=== PATIENT | male | born 1950 | race Caucasian/White ===

== ENCOUNTER 2016-05-14 17:46 | Emergency (ER) | payer OTHER, MEDICAID ==
[~2016-05-14] VITALS: Ht 172.7 cm; Wt 80.0 kg
[2016-05-14 17:52] VITALS: BP 107/60; PULSE 86; RESP 18; TEMP 97; O2SAT 95
[2016-05-15 02:35] VITALS: BP 121/75; PULSE 71; RESP 16; O2SAT 98
[2016-05-15] MEDS ORDERED: ONDANSETRON HCL 4 MG/2 ML VIAL IVP ONE (02:45)
[2016-05-15] MEDS ORDERED: SODIUM CHLOR 0.9% 1000 ML INJ 1,000 ML IV ONE (02:45)
[2016-05-15] MEDS ORDERED: SODIUM CHLORIDE 0.9% FLUSH 5 ML FLUSH IVF PRN (02:45)
--- NOTE | 2016-05-15 02:58 | RADRPT ---
EXAM DATE/TIME: 05/15/2016 02:51 [place] COMPARISON: CT BRAIN W/O CONTRAST, January 10, 2016, 18:50. INDICATIONS : Cephalgia and dizziness. RADIATION DOSE: 41.96 CTDIvol (mGy) MEDICAL HISTORY : None SURGICAL HISTORY : None. ENCOUNTER: Initial ACUITY: 1 day PAIN SCALE: 5/10 LOCATION: cranial TECHNIQUE: Multiple contiguous axial images were obtained of the head. Using automated exposure control and adj ustment of the mA and/or kV according to patient size, radiation dose was kept as low as reasonably a chievable to obtain optimal diagnostic quality images. FINDINGS: CEREBRUM: The ventricles are normal for age. No evidence of midline shift, mass lesion, hemorrhage or acute in farction. No extra-axial fluid collections are seen. POSTERIOR FOSSA: The cerebellum and brainstem are intact. The 4th ventricle is midline. The cerebellopontine angle i s unremarkable. EXTRACRANIAL: The visualized portion of the orbits is intact. SKULL: The calvaria is intact. No evidence of skull fracture. CONCLUSION: Negative noncontrast CT brain. Kris Olivares MD on May 15, 2016 at 2:56 Board Certified Radiologist. This report was verified electronically.
[2016-05-15 03:38] VITALS: BP 194/123; PULSE 92; RESP 18; O2SAT 96
[2016-05-15 03:39] VITALS: PULSE 58
[2016-05-15 03:44] LABS: AUTOMATED NEUTROPHIL # 2.3 TH/MM3 (1.8-7.7); BASOPHIL % 0.4 % (0.0-2.0); EOSINOPHIL # 0.1 TH/MM3 (0-0.4); EOSINOPHIL % 1.2 % (0.0-4.0); HEMATOCRIT 43.2 % (39.0-51.0); HEMO FLAGS DIFF FINAL; LYMPH % 38.1 % (9.0-44.0); LYMPHOCYTE # 1.7 TH/MM3 (1.0-4.8); MEAN CELL VOLUME 93.4 FL (80.0-100.0); MEAN CORPUSCULAR HEMOGLOBIN 31.7 PG (27.0-34.0); MEAN CORPUSCULAR HGB CONC 33.9 % (32.0-36.0); MONO % 9.5 % (0.0-8.0); NEUT % 50.8 % (16.0-70.0); PLATELET COUNT 182 TH/MM3 (150-450); RED BLOOD COUNT 4.62 MIL/MM3 (4.50-5.90); RED CELL DISTRIBUTION WIDTH 13.9 % (11.6-17.2); WHITE BLOOD COUNT 4.5 TH/MM3 (4.0-11.0)
[2016-05-15 04:01] LABS: ALT (GPT) 30 U/L (12-78); ANION GAP 7 MEQ/L (5-15); AST (GOT) 16 U/L (15-37); BICARBONATE 26.6 MEQ/L (21.0-32.0); BLOOD UREA NITROGEN 13 MG/DL (7-18); CHLORIDE 103 MEQ/L (98-107); GLOMERULAR FILTRATION RATE 84 ML/MIN (>89); POTASSIUM 3.9 MEQ/L (3.5-5.1); SODIUM (NA) 137 MEQ/L (136-145)
[2016-05-15 04:02] LABS: APTT (PATIENT) 24.7 SEC (24.3-30.1); PROTHROMBIN TIME - PATIENT 10.9 SEC (9.8-11.6)
[2016-05-15 04:03] LABS: ALKALINE PHOSPHATASE 84 U/L (45-117); TOTAL BILIRUBIN ADULT 0.6 MG/DL (0.2-1.0)
[2016-05-15 04:15] LABS: AMPHETAMINE, URINE NEG (NEG); BARBITURATES, URINE NEG (NEG); COCAINE, URINE NEG (NEG)
[2016-05-15 04:16] LABS: BLOOD, URINE NEG (NEG); COMMENT (UR) CULT NOT INDICATED; GLUCOSE,URINE NEG (NEG); HYALINE CAST, URINE 2 /lpf (RARE); KETONE, URINE NEG (NEG); MUCUS URINE MOD /lpf (OCC); NITRITE,URINE NEG (NEG); PH, URINE 5.5 (5.0-8.5); SQUAMOUS EPITHELIAL CELL URINE <1 /hpf (0-5); URINE COLOR YELLOW (YELLW/STRAW)
--- NOTE | 2016-05-15 04:59 | PD ---
HPI Chief Complaint: Eye Problems/Injury Time Seen by Provider: 02:33 Travel History International Travel<30 days: No Contact w/Intl Traveler<30days: No Traveled to known affect area: No History of Present Illness HPI Patient is a 65-year-old male who presents to emergency room with complaints of dizziness. Patient reports that his customer solutions specialist told him that he had cataracts which need to be surgically removed, patient reports that he is here to have his cataracts removed. Patient reports that because of his cataracts, he feels dizzy. Patient reports that he felt dizzy around 5pm on 05/14/16 - reports that he was standing and nearly fainted. Reports that he felt faint and his friend was able to help him down to the ground. Denies syncopal episode. Denies LOC. Denies chest pain/sob. Patient reports, "I was told that I can feel dizzy with my cataracts, I need someone to take out my cataracts tonight". Patient with no other complaints. PFSH Past Medical History Respiratory: Yes (ASTHMA) Immunizations Current: No Past Surgical History Abdominal Surgery: Yes (hernia repair ) Other Surgery: Yes (tumor removal right arm ) Family History Family History: Negative Social History Alcohol Use: No Tobacco Use: No Substance Use: No Allergies-Medications (Allergen,Severity, Reaction): Coded Allergies: Penicillin (Verified Allergy, Mild, RASH, 05/15/16) Reported Meds & Prescriptions Reported Meds & Active Scripts Active No Active Prescriptions or Reported Medications Review of Systems General / Constitutional: No: Fever Eyes: No: Visual changes HENT: No: Headaches Cardiovascular: No: Chest Pain or Discomfort, Palpitations Respiratory: No: Shortness of Breath Gastrointestinal: No: Abdominal Pain Genitourinary: No: Dysuria Musculoskeletal: No: Pain Skin: No Rash Neurologic: Positive: Dizziness, No: Weakness Psychiatric: No: Depression Endocrine: No: Polydipsia Hematologic/Lymphatic: No: Easy Bruising Physical Exam Narrative GENERAL: No acute distress, nontoxic SKIN: Warm and dry. HEAD: Atraumatic. Normocephalic. EYES: Pupils equal and round. No scleral icterus. No injection or drainage. ENT: No nasal bleeding or discharge. Mucous membranes pink and moist. NECK: Trachea midline. No JVD. CARDIOVASCULAR: Regular rate and rhythm. No murmur appreciated. RESPIRATORY: No accessory muscle use. Clear to auscultation. Breath sounds equal bilaterally. GASTROINTESTINAL: Abdomen soft, non-tender, nondistended. Hepatic and splenic margins not palpable. MUSCULOSKELETAL: No obvious deformities. No clubbing. No cyanosis. No edema. NEUROLOGICAL: Awake and alert. No obvious cranial nerve deficits. Motor grossly within normal limits. Normal speech. Cranial nerves to 12 grossly intact with no neurological deficits PSYCHIATRIC: Appropriate mood and affect; insight and judgment normal. Data Data Last Documented VS Vital Signs Date Time Temp Pulse Resp B/P Pulse Ox O2 Delivery O2 Flow Rate FiO2 05/15/16 03:39 58 05/15/16 02:35 16 121/75 98 Room Air 05/14/16 17:52 97.0 Orders Electrocardiogram (05/15/16 02:39) Prothrombin Time / Inr (Pt) (05/15/16 02:39) Act Partial Throm Time (Ptt) (05/15/16 02:39) Complete Blood Count With Diff (05/15/16 02:39) Comprehensive Metabolic Panel (05/15/16 02:39) Drug Screen, Random Urine (05/15/16 02:39) Ua Includes Microscopic (05/15/16 02:39) Ct Brain W/O Iv Contrast(Rout) (05/15/16 02:39) Ecg Monitoring (05/15/16 02:39) Iv Access Insert/Monitor (05/15/16 02:39) Oximetry (05/15/16 02:39) Blood Glucose (05/15/16 02:39) Ondansetron Inj (Zofran Inj) (05/15/16 02:45) Sodium Chloride 0.9% Flush (Ns Flush) (05/15/16 02:45) Sodium Chlor 0.9% 1000 Ml Inj (Ns 1000 M (05/15/16 02:45) Labs Laboratory Tests Test 05/15/16 03:25 White Blood Count 4.5 TH/MM3 Red Blood Count 4.62 MIL/MM3 Hemoglobin 14.7 GM/DL Hematocrit 43.2 % Mean Corpuscular Volume 93.4 FL Mean Corpuscular Hemoglobin 31.7 PG Mean Corpuscular Hemoglobin 33.9 % Concent Red Cell Distribution Width 13.9 % Platelet Count 182 TH/MM3 Mean Platelet Volume 7.5 FL Neutrophils (%) (Auto) 50.8 % Lymphocytes (%) (Auto) 38.1 % Monocytes (%) (Auto) 9.5 % Eosinophils (%) (Auto) 1.2 % Basophils (%) (Auto) 0.4 % Neutrophils # (Auto) 2.3 TH/MM3 Lymphocytes # (Auto) 1.7 TH/MM3 Monocytes # (Auto) 0.4 TH/MM3 Eosinophils # (Auto) 0.1 TH/MM3 Basophils # (Auto) 0.0 TH/MM3 CBC Comment DIFF FINAL Differential Comment Prothrombin Time 10.9 SEC Prothromb Time International 1.0 RATIO Ratio Activated Partial 24.7 SEC Thromboplast Time Urine Color YELLOW Urine Turbidity CLEAR Urine pH 5.5 Urine Specific [place] 1.014 Urine Protein TRACE mg/dL Urine Glucose (UA) NEG mg/dL Urine Ketones NEG mg/dL Urine Occult Blood NEG Urine Nitrite NEG Urine Bilirubin NEG Urine Urobilinogen LESS THAN 2.0 MG/DL Urine Leukocyte Esterase NEG Urine RBC 1 /hpf Urine WBC 2 /hpf Urine Squamous Epithelial <1 /hpf Cells Urine Hyaline Casts 2 /lpf Urine Mucus MOD /lpf Microscopic Urinalysis Comment CULT NOT INDICATED Sodium Level 137 MEQ/L Potassium Level 3.9 MEQ/L Chloride Level 103 MEQ/L Carbon Dioxide Level 26.6 MEQ/L Anion Gap 7 MEQ/L Blood Urea Nitrogen 13 MG/DL Creatinine 0.90 MG/DL Estimat Glomerular Filtration 84 ML/MIN Rate Random Glucose 91 MG/DL Calcium Level 8.5 MG/DL Total Bilirubin 0.6 MG/DL Aspartate Amino Transf 16 U/L (AST/SGOT) Alanine Aminotransferase 30 U/L (ALT/SGPT) Alkaline Phosphatase 84 U/L Total Protein 7.3 GM/DL Albumin 3.5 GM/DL Urine Opiates Screen NEG Urine Barbiturates Screen NEG Urine Amphetamines Screen NEG Urine Benzodiazepines Screen NEG Urine Cocaine Screen NEG Urine Cannabinoids Screen NEG MDM Medical Decision Making Medical Screen Exam Complete: Yes Emergency Medical Condition: Yes Interpretation(s) EKG at 0323: Sinus bradycardia at 57 beats a minute, QT/QTC 376/370, no acute ST -T wave changes Vital Signs Date Time Temp Pulse Resp B/P Pulse Ox O2 Delivery O2 Flow Rate FiO2 05/15/16 03:39 58 05/15/16 02:35 71 16 121/75 98 Room Air 05/15/16 02:33 65 05/14/16 17:52 97.0 86 18 107/60 95 Laboratory Tests Test 05/15/16 03:25 White Blood Count 4.5 TH/MM3 (4.0-11.0) Red Blood Count 4.62 MIL/MM3 (4.50-5.90) Hemoglobin 14.7 GM/DL (13.0-17.0) Hematocrit 43.2 % (39.0-51.0) Mean Corpuscular Volume 93.4 FL (80.0-100.0) Mean Corpuscular Hemoglobin 31.7 PG (27.0-34.0) Mean Corpuscular Hemoglobin 33.9 % Concent (32.0-36.0) Red Cell Distribution Width 13.9 % (11.6-17.2) Platelet Count 182 TH/MM3 (150-450) Mean Platelet Volume 7.5 FL (7.0-11.0) Neutrophils (%) (Auto) 50.8 % (16.0-70.0) Lymphocytes (%) (Auto) 38.1 % (9.0-44.0) Monocytes (%) (Auto) 9.5 % (0.0-8.0) Eosinophils (%) (Auto) 1.2 % (0.0-4.0) Basophils (%) (Auto) 0.4 % (0.0-2.0) Neutrophils # (Auto) 2.3 TH/MM3 (1.8-7.7) Lymphocytes # (Auto) 1.7 TH/MM3 (1.0-4.8) Monocytes # (Auto) 0.4 TH/MM3 (0-0.9) Eosinophils # (Auto) 0.1 TH/MM3 (0-0.4) Basophils # (Auto) 0.0 TH/MM3 (0-0.2) CBC Comment DIFF FINAL Differential Comment Prothrombin Time 10.9 SEC (9.8-11.6) Prothromb Time International 1.0 RATIO Ratio Activated Partial 24.7 SEC Thromboplast Time (24.3-30.1) Urine Color YELLOW (YELLW/STRAW) Urine Turbidity CLEAR (CLEAR) Urine pH 5.5 (5.0-8.5) Urine Specific [place] 1.014 (1.002-1.035) Urine Protein TRACE mg/dL (NEG-TRACE) Urine Glucose (UA) NEG mg/dL (NEG) Urine Ketones NEG mg/dL (NEG) Urine Occult Blood NEG (NEG) Urine Nitrite NEG (NEG) Urine Bilirubin NEG (NEG) Urine Urobilinogen LESS THAN 2.0 MG/DL (LESS THAN 2.0) Urine Leukocyte Esterase NEG (NEG) Urine RBC 1 /hpf (0-3) Urine WBC 2 /hpf (0-5) Urine Squamous Epithelial <1 /hpf (0-5) Cells Urine Hyaline Casts 2 /lpf (RARE) Urine Mucus MOD /lpf (OCC) Microscopic Urinalysis Comment CULT NOT INDICATED Sodium Level 137 MEQ/L (136-145) Potassium Level 3.9 MEQ/L (3.5-5.1) Chloride Level 103 MEQ/L (98-107) Carbon Dioxide Level 26.6 MEQ/L (21.0-32.0) Anion Gap 7 MEQ/L (5-15) Blood Urea Nitrogen 13 MG/DL (7-18) Creatinine 0.90 MG/DL (0.60-1.30) Estimat Glomerular Filtration 84 ML/MIN (>89) Rate Random Glucose 91 MG/DL (74-106) Calcium Level 8.5 MG/DL (8.5-10.1) Total Bilirubin 0.6 MG/DL (0.2-1.0) Aspartate Amino Transf 16 U/L (15-37) (AST/SGOT) Alanine Aminotransferase 30 U/L (12-78) (ALT/SGPT) Alkaline Phosphatase 84 U/L (45-117) Total Protein 7.3 GM/DL (6.4-8.2) Albumin 3.5 GM/DL (3.4-5.0) Urine Opiates Screen NEG (NEG) Urine Barbiturates Screen NEG (NEG) Urine Amphetamines Screen NEG (NEG) Urine Benzodiazepines Screen NEG (NEG) Urine Cocaine Screen NEG (NEG) Urine Cannabinoids Screen NEG (NEG) Differential Diagnosis Dizziness, ACS, electrolyte abnormalities, dehydration, cataracts Narrative Course Patient is a 65-year-old male who presents to emergency room with multiple complaints. Patient reports that he needs to cataracts fixed in his eyes, reports "I need surgery here and I need to have my cataracts removed." Reports that he had episode of dizziness at 5 PM on 05/14/16. On evaluation, patient nontoxic with no acute distress. Patient's neurological exam is benign and patient has no neurological deficits. Discussed with patient that customer solutions specialist will not move his cataracts while in the ER and he understands that he will need to have this removed as outpt Reviewed all labs and all studies with patient in detail. Patient reports he is feeling much better. Plan to discharge patient with outpatient follow-up. Signs and symptoms of when to return to the emergency room reviewed patient in detail. Diagnosis Primary Impression: Dizziness Additional Instructions: Please return to ER as needed Please follow up with your primary care doctor, return to ER as needed Please call your customer solutions specialist for earliest follow-up Scripts No Active Prescriptions or Reported Meds Disposition: 01 DISCHARGE HOME Condition: Stable Anisa Figueroa DO May 15, 2016 04:59
--- NOTE | 2016-05-15 14:29 | EKG ---
Date Performed: 05/15/2016 Time Performed: 03:23:27 PTAGE: 65 years EKG: SINUS BRADYCARDIA WITH OCCASIONAL SUPRAVENTRICULAR PREMATURE COMPLEXES NONSPECIFIC T-WAVE A BNORMALITY BORDERLINE ECG NO PREVIOUS TRACING DOCTOR: Andrew Menendez Interpretating Date/Time 05/15/2016 14:28:45
== END 2016-05-15 06:21 | disposition home or self-care (01) ==
LOC: NEPE 17:46
DX: R42 Dizziness and giddiness (principal); R00.1 Bradycardia, unspecified
CPT/HCPCS: 70450; 80053; 80307; 81001; 85025; 85610; 85730; 93005; 96361; 96374; 99284; J2405; J7030

== ENCOUNTER 2016-09-01 14:34 | Emergency (ER) | payer OTHER, MEDICAID ==
[~2016-09-01] VITALS: Ht 172.7 cm; Wt 86.0 kg
[2016-09-01 14:41] VITALS: BP 86/56; PULSE 89; RESP 17; TEMP 97.7; O2SAT 99
[2016-09-01 14:42] VITALS: BP 90/60
[2016-09-01] MEDS ORDERED: OMEP40CA2 PO (15:17)
[2016-09-01] MEDS ORDERED: NAPR500T PO (15:17)
[2016-09-01] MEDS ORDERED: GABA300C5 PO (15:17)
[2016-09-01] MEDS ORDERED: LOVA10TA PO (15:17)
[2016-09-01] MEDS ORDERED: SUPECAP14 (15:17)
[2016-09-01] MEDS ORDERED: TERA5CAP3 PO (15:17)
[2016-09-01] MEDS ORDERED: ASPI81TA81 (15:18)
[2016-09-01] MEDS ORDERED: CHOL100025 CHEW (15:18)
--- NOTE | 2016-09-01 15:29 | PD ---
HPI Chief Complaint: Pain: Acute or Chronic Time Seen by Provider: 15:29 Travel History International Travel<30 days: No Contact w/Intl Traveler<30days: No Traveled to known affect area: No History of Present Illness HPI 65 year-old male resents to the emergency department for evaluation right hip pain that radiates to his right knee. This is been ongoing for many months. It comes and goes. He states it seems to have been worse lately. Denies any new injury. No fever or chills. No saddle paresthesia, loss of bowel or bladder, or lower extremity weakness. States that at this time in this position he has no pain but with certain position changes it shoots from his right hip to his knee. He states when he lays on his right hip he is fine but when he rotates over to his left hip the pain returns. No other symptoms to report at this time. PFSH Past Medical History High Cholesterol: Yes Respiratory: Yes (ASTHMA) Immunizations Current: No Past Surgical History Abdominal Surgery: Yes (hernia repair ) Other Surgery: Yes (tumor removal right arm ) Social History Alcohol Use: No Tobacco Use: No Substance Use: No Allergies-Medications (Allergen,Severity, Reaction): Coded Allergies: Penicillin (Verified Allergy, Mild, RASH, 09/01/16) Reported Meds & Prescriptions Reported Meds & Active Scripts Active Medrol Dosepak (Methylprednisolone) 4 Mg Dspk 4 Mg PO DIRECTED Per Pharmacist direction Reported Aspir-81 (Aspirin) 81 Mg Tabdr DAILY Vitamin D3 (Cholecalciferol) 1,000 Unit Chew 1,000 Units CHEW DAILY Super B with C (B Complex W/ C) 1 Cap Cap 2 DAILY Lovastatin 10 Mg Tab 10 Mg PO DAILY Terazosin (Terazosin HCl) 5 Mg Cap 5 Mg PO DAILY Gabapentin 300 Mg Cap 300 Mg PO TID Naproxen 500 Mg Tab 500 Mg PO BID Omeprazole 40 Mg Cap 40 Mg PO DAILY Review of Systems Except as stated in HPI: all other systems reviewed are Neg Physical Exam Narrative GENERAL: Well-nourished male patient, in no acute distress patient is ambulatory with a cane. SKIN: Focused skin assessment warm/dry. HEAD: Atraumatic. Normocephalic. EYES: Pupils equal and round. No scleral icterus. No injection or drainage. ENT: No nasal bleeding or discharge. Mucous membranes pink and moist. NECK: Trachea midline. No JVD. CARDIOVASCULAR: Regular rate and rhythm. No murmur appreciated. RESPIRATORY: No accessory muscle use. Clear to auscultation. Breath sounds equal bilaterally. GASTROINTESTINAL: Abdomen soft, non-tender, nondistended. Hepatic and splenic margins not palpable. MUSCULOSKELETAL: No obvious deformities. No clubbing. No cyanosis. No edema. Pain to palpation of the right sacral iliac joint. No deformity. No crepitus. NEUROLOGICAL: Awake and alert. No obvious cranial nerve deficits. Motor grossly within normal limits. Normal speech. l. Data Data Last Documented VS Vital Signs Date Time Temp Pulse Resp B/P Pulse Ox O2 Delivery O2 Flow Rate FiO2 09/01/16 15:55 112/67 09/01/16 14:41 97.7 89 17 99 Orders Ketorolac Inj (Toradol Inj) (09/01/16 15:45) Dexamethasone Inj (Decadron Inj) (09/01/16 15:45) Splint Or Brace Apply/Monitor (09/01/16 15:35) Brace Quick Draw Corset (09/01/16 ) MDM Medical Decision Making Medical Screen Exam Complete: Yes Emergency Medical Condition: Yes Medical Record Reviewed: Yes Differential Diagnosis Sciatica versus low back strain versus discogenic pain versus radiculopathy Narrative Course 65-year-old male presents to the emergency department for evaluation of exacerbation of right hip pain radiating to his right knee. Patient appears without distress. This is not a new injury or a new pain. No focal deficits or weakness. Patient is treated for pain and given a quick draw back brace. He is encouraged to follow-up the primary care provider. He agrees to return immediately with any acute worsening of symptoms. Diagnosis Primary Impression: Low back pain Qualified Code: M54.41 - Right-sided low back pain with right-sided sciatica, unspecified chronicity Referrals: Primary Care Physician Patient Instructions: General Instructions, Sciatica (ED) Additional Instructions: Ice and/or warm moist heat may help to alleviate symptoms Brace for support when ambulatory. Do not wear this at all times as it may weaken her core muscles and worsening of back pain Return immediately with any acute worsening of symptoms Med/Other Pt SpecificInfo: Prescription(s) given Scripts Methylprednisolone Dosepak (Medrol Dosepak)4 Mg Dspk4 Mg PO DIRECTED #1 DSPK Ref 0 Per Pharmacist direction Prov:Kirstin Kenyon 09/01/16 Disposition: 01 DISCHARGE HOME Condition: Stable Kirstin Kenyon Sep 01, 2016 15:29
[2016-09-01] MEDS ORDERED: KETOROLAC TROMETHAMINE 60 MG/2 ML (IM) VIAL IM ONE (15:45)
[2016-09-01] MEDS ORDERED: DEXAMETHASONE SOD PHOS 4 MG/ML VIAL IM ONE (15:45)
[2016-09-01 15:55] VITALS: BP 112/67
[2016-09-01] MEDS ORDERED: MEDR4PAK PO (16:11)
== END 2016-09-01 17:11 | disposition home or self-care (01) ==
LOC: NEPD 14:34
DX: M54.5 Low back pain (principal); M25.551 Pain in right hip; Z79.82 Long term (current) use of aspirin; E78.00 Pure hypercholesterolemia, unspecified
CPT/HCPCS: 96372; 99283; J1100; J1885; L0627

== ENCOUNTER 2017-06-19 12:41 | Emergency (ER) | payer OTHER, MEDICAID ==
[~2017-06-19] VITALS: Ht 170.2 cm; Wt 90.0 kg
[~2017-06-19 12:41] MED LIST: ASPI81TA81; CHOL100025 CHEW; GABA300C5 PO; LOVA10TA PO; MEDR4PAK PO; NAPR500T2 PO; OMEP40CA2 PO; SUPECAP14; TERA5CAP3 PO
[2017-06-19 12:43] VITALS: BP 106/55; PULSE 62; RESP 15; TEMP 98.5; O2SAT 93
[2017-06-19] MEDS ORDERED: MECL12.574 PO (13:07)
[2017-06-19] MEDS ORDERED: DONE5TAB7 PO (13:07)
--- NOTE | 2017-06-19 13:13 | PD ---
HPI Chief Complaint: Edema Time Seen by Provider: 12:52 Travel History International Travel<30 days: No Contact w/Intl Traveler<30days: No Traveled to known affect area: No History of Present Illness HPI 66-year-old male that presents to the ED for evaluation of swelling to the lower legs that has been worsening today. Per patient she's had the swelling for about a week. Per patient he does have a history of this in the past. He does take gabapentin and naproxen secondary to arthritis and neuropathic pain and states that his gabapentin was recently increased because he was having more discomfort. He usually ambulates with a cane and does well but today when he was taking a shower he noticed that both of his feet were very swollen. Per patient is not usual for him. He denies any recent travel or surgeries. No chest pain or shortness of breath. Per family member who is in the room he was complaining of significant pain in the morning but he does not complain of any pain to me at this time. Most of the swelling is in the feet and ankles. Denies any redness. No urinary or bowel movement issues. Has not seen his doctor for this. Denies taking any diuretics. Denies any fevers chills or sweats. Allergy to penicillin. No other new medications or trauma per patient. PFSH Past Medical History Asthma: Yes High Cholesterol: Yes Diminished Hearing: No Respiratory: Yes (ASTHMA) Immunizations Current: No ?: Not Past Surgical History Abdominal Surgery: Yes (hernia repair ) Other Surgery: Yes (tumor removal right arm ) Social History Alcohol Use: No Tobacco Use: No Substance Use: No Allergies-Medications (Allergen,Severity, Reaction): Coded Allergies: penicillin G (Unverified Allergy, Mild, RASH, 06/19/17) Reported Meds & Prescriptions Reported Meds & Active Scripts Active Potassium Chloride ER (Potassium Chloride) 10 Meq Cap 10 Meq PO DAILY 5 Days Furosemide 20 Mg Tab 20 Mg PO DAILY 7 Days Reported Donepezil 5 Mg Tab 5 Mg PO HS Meclizine (Meclizine HCl) 12.5 Mg Tab 12.5 Mg PO TID PRN Aspir-81 (Aspirin) 81 Mg Tabdr DAILY Vitamin D3 (Cholecalciferol) 1,000 Unit Chew 1,000 Units CHEW DAILY Super B with C (B Complex W/ C) 1 Cap Cap 2 DAILY Lovastatin 10 Mg Tab 10 Mg PO DAILY Terazosin (Terazosin HCl) 5 Mg Cap 5 Mg PO DAILY Gabapentin 300 Mg Cap 300 Mg PO TID Naproxen 500 Mg Tab 500 Mg PO BID Omeprazole 40 Mg Cap 40 Mg PO DAILY Review of Systems Except as stated in HPI: all other systems reviewed are Neg Physical Exam Narrative GENERAL: SKIN: Warm and dry. HEAD: Atraumatic. Normocephalic. EYES: Pupils equal and round. No scleral icterus. No injection or drainage. ENT: No nasal bleeding or discharge. Mucous membranes pink and moist. NECK: Trachea midline. No JVD. CARDIOVASCULAR: Regular rate and rhythm. RESPIRATORY: No accessory muscle use. Clear to auscultation. Breath sounds equal bilaterally. GASTROINTESTINAL: Abdomen soft, non-tender, nondistended. Hepatic and splenic margins not palpable. MUSCULOSKELETAL: Extremities without clubbing, cyanosis, or edema. No obvious deformities. Patient has bilateral lower leg edema which is 2+. Some tenderness and swelling on the canals bilaterally. Patient does appear to have some varicose veins on the medial aspect of the lower legs bilaterally. No sign of erythema or mass. Not warm to the touch. 2+ pulses bilaterally. Full range of motion of the upper and lower extremities bilaterally. NEUROLOGICAL: Awake and alert. No obvious cranial nerve deficits. Motor grossly within normal limits. Five out of 5 muscle strength in the arms and legs. Normal speech. PSYCHIATRIC: Appropriate mood and affect; insight and judgment normal. Data Data Last Documented VS Vital Signs Date Time Temp Pulse Resp B/P (MAP) Pulse Ox O2 Delivery O2 Flow Rate FiO2 06/19/17 14:31 55 17 110/64 (79) 97 Room Air 06/19/17 12:43 98.5 Orders Orders Us Leg Venous Doppler Bilat (06/19/17 13:01) Complete Blood Count With Diff (06/19/17 13:01) Basic Metabolic Panel (Bmp) (06/19/17 13:01) B-Type Natriuretic Peptide (06/19/17 13:01) Magnesium (Mg) (06/19/17 13:01) Iv Access Insert/Monitor (06/19/17 13:01) Ed Discharge Order (06/19/17 15:28) Labs Laboratory Tests Test 06/19/17 13:07 White Blood Count 6.9 TH/MM3 Red Blood Count 4.35 MIL/MM3 Hemoglobin 14.3 GM/DL Hematocrit 41.8 % Mean Corpuscular Volume 96.1 FL Mean Corpuscular Hemoglobin 32.9 PG Mean Corpuscular Hemoglobin Concent 34.3 % Red Cell Distribution Width 13.3 % Platelet Count 224 TH/MM3 Mean Platelet Volume 7.9 FL Neutrophils (%) (Auto) 66.5 % Lymphocytes (%) (Auto) 21.7 % Monocytes (%) (Auto) 10.4 % Eosinophils (%) (Auto) 1.1 % Basophils (%) (Auto) 0.3 % Neutrophils # (Auto) 4.6 TH/MM3 Lymphocytes # (Auto) 1.5 TH/MM3 Monocytes # (Auto) 0.7 TH/MM3 Eosinophils # (Auto) 0.1 TH/MM3 Basophils # (Auto) 0.0 TH/MM3 CBC Comment DIFF FINAL Differential Comment Blood Urea Nitrogen 18 MG/DL Creatinine 0.92 MG/DL Random Glucose 83 MG/DL Calcium Level 8.8 MG/DL Magnesium Level 2.0 MG/DL Sodium Level 142 MEQ/L Potassium Level 4.0 MEQ/L Chloride Level 105 MEQ/L Carbon Dioxide Level 32.1 MEQ/L Anion Gap 5 MEQ/L Estimat Glomerular Filtration Rate 82 ML/MIN B-Type Natriuretic Peptide 64 PG/ML MDM Medical Decision Making Medical Screen Exam Complete: Yes Emergency Medical Condition: Yes Medical Record Reviewed: Yes Interpretation(s) CBC & BMP Diagram 06/19/17 13:07 Calcium Level 8.8, Magnesium Level 2.0 US negative Differential Diagnosis Pitting edema versus leg edema versus DVT versus venous insufficiency versus CHF Narrative Course 66-year-old male that presents to the ED for evaluation of lower leg edema. Patient was properly examined and was found to have signs and symptoms of unclear etiology but likely secondary to pitting edema. Unclear as to the source. Patient does have some calf tenderness and swelling. Ultrasound will be ordered. Labs were ordered. Labs and imaging showed no sign of acute disease. No sign of DVT. Patient was reassured. This time I recommend trial of diuretics as well as compression stockings. Patient agrees with plan. My attending Dr. Porter about the patient and agrees with plan. Patient was sent home with prescription for furosemide and potassium. Told to follow up with PCP. See ED worsening symptoms. Compression stockings were endorsed. Diagnosis Primary Impression: Pitting edema Patient Instructions: General Instructions Additional Instructions: Take medication as prescribed. Follow with PCP. See ED for worsening symptoms. Use compression stockings [id number]. Med/Other Pt SpecificInfo: Prescription(s) given Scripts Potassium Chloride ER (Potassium Chloride ER) 10 Meq Cap 10 MEQ PO DAILY for Electrolyte Replacement for 5 Days, #5 CAP 0 Refills Prov: Benjamin Porter MD 06/19/17 Furosemide (Furosemide) 20 Mg Tab 20 MG PO DAILY for 7 Days, #7 TAB 0 Refills Prov: Benjamin Porter MD 06/19/17 Disposition: 01 DISCHARGE HOME Condition: Stable Trav Ludwig Jun 19, 2017 13:13
[2017-06-19 13:20] LABS: AUTOMATED NEUTROPHIL # 4.6 TH/MM3 (1.8-7.7); BASOPHIL % 0.3 % (0.0-2.0); EOSINOPHIL # 0.1 TH/MM3 (0-0.4); EOSINOPHIL % 1.1 % (0.0-4.0); HEMATOCRIT 41.8 % (39.0-51.0); HEMOGLOBIN 14.3 GM/DL (13.0-17.0); LYMPH % 21.7 % (9.0-44.0); LYMPHOCYTE # 1.5 TH/MM3 (1.0-4.8); MEAN CELL VOLUME 96.1 FL (80.0-100.0); MEAN CORPUSCULAR HEMOGLOBIN 32.9 PG (27.0-34.0); MEAN CORPUSCULAR HGB CONC 34.3 % (32.0-36.0); MEAN PLATELET VOLUME 7.9 FL (7.0-11.0); MONO % 10.4 % (0.0-8.0); MONOCYTE # 0.7 TH/MM3 (0-0.9); NEUT % 66.5 % (16.0-70.0); PLATELET COUNT 224 TH/MM3 (150-450); RED BLOOD COUNT 4.35 MIL/MM3 (4.50-5.90); RED CELL DISTRIBUTION WIDTH 13.3 % (11.6-17.2); WHITE BLOOD COUNT 6.9 TH/MM3 (4.0-11.0)
[2017-06-19 13:36] LABS: BICARBONATE 32.1 MEQ/L (21.0-32.0); CALCIUM 8.8 MG/DL (8.5-10.1); CREATININE 0.92 MG/DL (0.60-1.30)
[2017-06-19 14:31] VITALS: BP 110/64; PULSE 55; RESP 17; O2SAT 97
[2017-06-19] MEDS ORDERED: FURO20TA PO (15:14)
[2017-06-19] MEDS ORDERED: POTA10CA PO (15:14)
--- NOTE | 2017-06-19 15:22 | RADRPT ---
EXAM DATE/TIME: 06/19/2017 14:51 [place] COMPARISON: No previous studies available for comparison. INDICATIONS : Bilateral leg swelling. MEDICAL HISTORY : Hypercholesterolemia. SURGICAL HISTORY : Hernia repair. 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 ENCOUNTER: Initial ACUITY: 1 week PAIN SCORE: 2/10 LOCATION: Bilateral legs. TECHNIQUE: Venous ultrasound of the left and right leg was performed from the inguinal ligament to the proximal calf. Real-time, color Doppler and spectral tracing, compression and augmentation techniques were us ed. FINDINGS: RIGHT LEG: There is normal compressibility of the deep venous system from the inguinal region to the proximal ca lf. No echogenic clot is seen in the lumen of the common femoral, femoral, popliteal, and posterior tibial veins. There is a normal response of the venous system to proximal and distal augmentation an d respiration. Iliac vein with normal flow LEFT LEG: There is normal compressibility of the deep venous system from the inguinal region to the proximal ca lf. No echogenic clot is seen in the lumen of the common femoral, femoral, popliteal, and posterior tibial veins. There is a normal response of the venous system to proximal and distal augmentation an d respiration. Iliac vein open and patent CONCLUSION: Normal examination. No evidence DVT Clive Oden MD on June 19, 2017 at 15:19 Board Certified Radiologist. This report was verified electronically.
--- NOTE | 2017-06-19 15:34 | PD ---
Data Data Last Documented VS Vital Signs Date Time Temp Pulse Resp B/P (MAP) Pulse Ox O2 Delivery O2 Flow Rate FiO2 06/19/17 14:31 55 17 110/64 (79) 97 Room Air 06/19/17 12:43 98.5 Orders Orders Us Leg Venous Doppler Bilat (06/19/17 13:01) Complete Blood Count With Diff (06/19/17 13:01) Basic Metabolic Panel (Bmp) (06/19/17 13:01) B-Type Natriuretic Peptide (06/19/17 13:01) Magnesium (Mg) (06/19/17 13:01) Iv Access Insert/Monitor (06/19/17 13:01) Ed Discharge Order (06/19/17 15:28) Labs Laboratory Tests Test 06/19/17 13:07 White Blood Count 6.9 TH/MM3 Red Blood Count 4.35 MIL/MM3 Hemoglobin 14.3 GM/DL Hematocrit 41.8 % Mean Corpuscular Volume 96.1 FL Mean Corpuscular Hemoglobin 32.9 PG Mean Corpuscular Hemoglobin Concent 34.3 % Red Cell Distribution Width 13.3 % Platelet Count 224 TH/MM3 Mean Platelet Volume 7.9 FL Neutrophils (%) (Auto) 66.5 % Lymphocytes (%) (Auto) 21.7 % Monocytes (%) (Auto) 10.4 % Eosinophils (%) (Auto) 1.1 % Basophils (%) (Auto) 0.3 % Neutrophils # (Auto) 4.6 TH/MM3 Lymphocytes # (Auto) 1.5 TH/MM3 Monocytes # (Auto) 0.7 TH/MM3 Eosinophils # (Auto) 0.1 TH/MM3 Basophils # (Auto) 0.0 TH/MM3 CBC Comment DIFF FINAL Differential Comment Blood Urea Nitrogen 18 MG/DL Creatinine 0.92 MG/DL Random Glucose 83 MG/DL Calcium Level 8.8 MG/DL Magnesium Level 2.0 MG/DL Sodium Level 142 MEQ/L Potassium Level 4.0 MEQ/L Chloride Level 105 MEQ/L Carbon Dioxide Level 32.1 MEQ/L Anion Gap 5 MEQ/L Estimat Glomerular Filtration Rate 82 ML/MIN B-Type Natriuretic Peptide 64 PG/ML MDM Supervised Visit with NAEL: Yes Narrative Course The history, exam, and medical decision-making in the associated mid-level provider note were completed with my assistance. I reviewed and agree with the findings presented. I attest that I had a [id number] encounter with the patient on the same day, and personally performed and documented my assessment and findings in the medical record. *My assessment and Findings: 66-year-old man, worsening lower extremity edema both legs, pitting edema on exam, little warmth or redness. No evidence of heart failure. Ultrasounds negative for DVT. Recommend short course of diuretics, elevation and compression. Diagnosis Primary Impression: Pitting edema Patient Instructions: General Instructions Additional Instruction: Take medication as prescribed. Follow with PCP. See ED for worsening symptoms. Use compression stockings [id number]. Scripts Potassium Chloride ER (Potassium Chloride ER) 10 Meq Cap 10 MEQ PO DAILY for Electrolyte Replacement for 5 Days, #5 CAP 0 Refills Prov: Benjamin Porter MD 06/19/17 Furosemide (Furosemide) 20 Mg Tab 20 MG PO DAILY for 7 Days, #7 TAB 0 Refills Prov: Benjamin Porter MD 06/19/17 Disposition: 01 DISCHARGE HOME Condition: Stable Benjamin Porter MD Jun 19, 2017 15:34
== END 2017-06-19 16:28 | disposition home or self-care (01) ==
LOC: NEPE 12:41
DX: R60.0 Localized edema (principal); E78.00 Pure hypercholesterolemia, unspecified; J45.909 Unspecified asthma, uncomplicated; M19.90 Unspecified osteoarthritis, unspecified site
CPT/HCPCS: 80048; 83735; 83880; 85025; 93970; 99284

== ENCOUNTER 2017-10-18 23:18 | Emergency (ER) | payer MEDICARE, OTHER ==
[~2017-10-18] VITALS: Ht 165.1 cm; Wt 90.0 kg
[~2017-10-18 23:18] MED LIST changes: +DONE5TAB7 PO; +FURO20TA PO; +MECL12.574 PO; -MEDR4PAK PO; +POTA10CA PO
[2017-10-18 23:31] VITALS: BP 142/79; PULSE 64; RESP 18; TEMP 98.6; O2SAT 95
[2017-10-18 23:35] VITALS: RESP 16; O2SAT 95
[2017-10-18] MEDS ORDERED: SODIUM CHLORIDE 0.9% FLUSH 10 ML FLUSH IVF PRN (23:45)
[2017-10-18 23:51] LABS: AUTOMATED NEUTROPHIL # 2.8 TH/MM3 (1.8-7.7); BASOPHIL % 0.3 % (0.0-2.0); EOSINOPHIL # 0.1 TH/MM3 (0-0.4); EOSINOPHIL % 1.9 % (0.0-4.0); HEMATOCRIT 43.7 % (39.0-51.0); HEMOGLOBIN 15.2 GM/DL (13.0-17.0); LYMPH % 38.3 % (9.0-44.0); LYMPHOCYTE # 2.1 TH/MM3 (1.0-4.8); MEAN CELL VOLUME 97.5 FL (80.0-100.0); MEAN CORPUSCULAR HEMOGLOBIN 33.9 PG (27.0-34.0); MEAN CORPUSCULAR HGB CONC 34.7 % (32.0-36.0); MEAN PLATELET VOLUME 8.4 FL (7.0-11.0); MONO % 9.5 % (0.0-8.0); MONOCYTE # 0.5 TH/MM3 (0-0.9); PLATELET COUNT 208 TH/MM3 (150-450); RED BLOOD COUNT 4.48 MIL/MM3 (4.50-5.90); RED CELL DISTRIBUTION WIDTH 13.7 % (11.6-17.2); WHITE BLOOD COUNT 5.5 TH/MM3 (4.0-11.0)
[2017-10-19 00:03] LABS: INTERNATIONAL NORMALIZED RATIO 1.1 RATIO; PROTHROMBIN TIME - PATIENT 10.9 SEC (9.8-11.6)
[2017-10-19 00:12] LABS: ALBUMIN 3.4 GM/DL (3.4-5.0); ALT (GPT) 50 U/L (12-78); AST (GOT) 26 U/L (15-37); BLOOD UREA NITROGEN 24 MG/DL (7-18); CALCIUM 7.9 MG/DL (8.5-10.1); CHLORIDE 107 MEQ/L (98-107); CREATININE 0.86 MG/DL (0.60-1.30); GLOMERULAR FILTRATION RATE 89 ML/MIN (>89); GLUCOSE,RANDOM 106 MG/DL (74-106); SODIUM (NA) 142 MEQ/L (136-145)
[2017-10-19 00:14] LABS: ALKALINE PHOSPHATASE 64 U/L (45-117); TOTAL BILIRUBIN ADULT 0.6 MG/DL (0.2-1.0); TOTAL PROTEIN 6.8 GM/DL (6.4-8.2)
--- NOTE | 2017-10-19 00:18 | PD ---
HPI Chief Complaint: GI Complaint Time Seen by Provider: 23:33 Travel History International Travel<30 days: No Contact w/Intl Traveler<30days: No Traveled to known affect area: No History of Present Illness HPI This 66-year-old male presents emerged from quitting of bright red blood per rectum 3 times over the past hour or so. States this happened to him in the past but spent some time. He had an endoscopy within the past year where they removed some polyps but did not find any source of bleeding. No abdominal pain. Otherwise has been feeling well. Is not on any blood thinners. History Past Medical History Narrative Medical Hyperlipidemia Degenerative disc disease in the back Asthma BPH Social History Alcohol Use: No Tobacco Use: No Allergies-Medications (Allergen,Severity, Reaction): Coded Allergies: penicillin G (Unverified Allergy, Mild, RASH, 06/19/17) Reported Meds & Prescriptions Reported Meds & Active Scripts Active Potassium Chloride ER (Potassium Chloride) 10 Meq Cap 10 Meq PO DAILY 5 Days Furosemide 20 Mg Tab 20 Mg PO DAILY 7 Days Reported Donepezil 5 Mg Tab 5 Mg PO HS Meclizine (Meclizine HCl) 12.5 Mg Tab 12.5 Mg PO TID PRN Aspir-81 (Aspirin) 81 Mg Tabdr DAILY Vitamin D3 (Cholecalciferol) 1,000 Unit Chew 1,000 Units CHEW DAILY Super B with C (B Complex W/ C) 1 Cap Cap 2 DAILY Lovastatin 10 Mg Tab 10 Mg PO DAILY Terazosin (Terazosin HCl) 5 Mg Cap 5 Mg PO DAILY Gabapentin 300 Mg Cap 300 Mg PO TID Naproxen 500 Mg Tab 500 Mg PO BID Omeprazole 40 Mg Cap 40 Mg PO DAILY Review of Systems Except as stated in HPI: all other systems reviewed are Neg Physical Exam Narrative GENERAL: Well-appearing 66-year-old man, no acute distress. SKIN: Focused skin assessment warm/dry. HEAD: Atraumatic. Normocephalic. EYES: Pupils equal and round. No scleral icterus. No injection or drainage. CARDIOVASCULAR: Regular rate and rhythm. No murmur appreciated. RESPIRATORY: No accessory muscle use. Clear to auscultation. Breath sounds equal bilaterally. GASTROINTESTINAL: Abdomen soft, non-tender, nondistended. Hepatic and splenic margins not palpable. MUSCULOSKELETAL: No obvious deformities. No clubbing. No cyanosis. No edema. RECTAL: Some dry bright red blood or malaise. Multiple hemorrhoids. Bleeding appears to be emanating from a small prolapsed internal hemorrhoid. Is no tenderness. Maybe a little bit of trickling oozing but no significant bleeding. Data Data Last Documented VS Vital Signs Date Time Temp Pulse Resp B/P (MAP) Pulse Ox O2 Delivery O2 Flow Rate FiO2 10/18/17 23:35 16 95 Room Air 10/18/17 23:31 98.6 64 142/79 (100) Orders Orders Complete Blood Count With Diff (10/18/17 23:34) Comprehensive Metabolic Panel (10/18/17 23:34) Prothrombin Time / Inr (Pt) (10/18/17 23:34) Act Partial Throm Time (Ptt) (10/18/17 23:34) Type And Screen (10/18/17 23:34) Ecg Monitoring (10/18/17 23:34) Iv Access Insert/Monitor (10/18/17 23:34) Oximetry (10/18/17 23:34) Sodium Chloride 0.9% Flush (Ns Flush) (10/18/17 23:45) Labs Laboratory Tests Test 10/18/17 23:30 White Blood Count 5.5 TH/MM3 Red Blood Count 4.48 MIL/MM3 Hemoglobin 15.2 GM/DL Hematocrit 43.7 % Mean Corpuscular Volume 97.5 FL Mean Corpuscular Hemoglobin 33.9 PG Mean Corpuscular Hemoglobin Concent 34.7 % Red Cell Distribution Width 13.7 % Platelet Count 208 TH/MM3 Mean Platelet Volume 8.4 FL Neutrophils (%) (Auto) 50.0 % Lymphocytes (%) (Auto) 38.3 % Monocytes (%) (Auto) 9.5 % Eosinophils (%) (Auto) 1.9 % Basophils (%) (Auto) 0.3 % Neutrophils # (Auto) 2.8 TH/MM3 Lymphocytes # (Auto) 2.1 TH/MM3 Monocytes # (Auto) 0.5 TH/MM3 Eosinophils # (Auto) 0.1 TH/MM3 Basophils # (Auto) 0.0 TH/MM3 CBC Comment DIFF FINAL Differential Comment Prothrombin Time 10.9 SEC Prothromb Time International Ratio 1.1 RATIO Activated Partial Thromboplast Time 25.9 SEC Blood Urea Nitrogen 24 MG/DL Creatinine 0.86 MG/DL Random Glucose 106 MG/DL Total Protein 6.8 GM/DL Albumin 3.4 GM/DL Calcium Level 7.9 MG/DL Alkaline Phosphatase 64 U/L Aspartate Amino Transf (AST/SGOT) 26 U/L Alanine Aminotransferase (ALT/SGPT) 50 U/L Total Bilirubin 0.6 MG/DL Sodium Level 142 MEQ/L Potassium Level 3.6 MEQ/L Chloride Level 107 MEQ/L Carbon Dioxide Level 25.0 MEQ/L Anion Gap 10 MEQ/L Estimat Glomerular Filtration Rate 89 ML/MIN [facility] Medical Decision Making Medical Screen Exam Complete: Yes Emergency Medical Condition: Yes Interpretation(s) LABS: CBC is unremarkable. CMP is unremarkable Coags unremarkable Differential Diagnosis Lower GI bleed, hemorrhoidal bleeding, AVM, malignant diverticular bleed, other Narrative Course Medical decision making This 66-year-old man who presents to the emergency department with some bright red blood per rectum over the past hour or so. This appears to be hemorrhoidal bleeding. Feeling pretty good view of the source. Looks otherwise well. Is no evidence of anemia. Will check labs, can likely be discharged for outpatient follow-up with his primary has persistent bleeding. Diagnosis Primary Impression: Internal bleeding hemorrhoids Additional Instructions: Follow-up with her primary doctor in the next 1-2 days for repeat evaluation. Return the emergency department for copious rectal bleeding, or any other new or worsening symptoms. Med/Other Pt SpecificInfo: No Change to Meds Disposition: 01 DISCHARGE HOME Condition: Stable Benjamin Porter MD Oct 19, 2017 00:18
== END 2017-10-19 08:39 | disposition home or self-care (01) ==
LOC: NEPC 23:18
DX: K64.8 Other hemorrhoids (principal); K62.5 Hemorrhage of anus and rectum; E78.5 Hyperlipidemia, unspecified; N40.0 Benign prostatic hyperplasia without lower urinary tract symptoms
CPT/HCPCS: 80053; 85025; 85610; 85730; 86850; 86900; 86901; 99283